=== PATIENT | male | born 1960 | race Hispanic/Latino ===

== ENCOUNTER 2021-12-05 21:59 | Inpatient (IN) | payer OTHER ==
[2021-12-06] MEDS: hydrALAZINE 20 MG/ML VIAL SLOW IVP PRN ×2 (01:09→17:43)
[2021-12-06 02:00] VITALS: BMI 26.4
[2021-12-06] MEDS: Cefepime 2 GM in Sodium Chloride 0.9% 100 ML IVPB SCH ×2 (06:22→17:45)
[2021-12-06] MEDS ORDERED: VANCOMYCIN 1.25 GM/250 ML BAG IVPB SCH (08:00)
[2021-12-06] MEDS: VANCOMYCIN 1.25 GM/250 ML BAG 1.25 GM in Premix Bag 1 BAG IVPB SCH ×2 (09:01→20:34)
[2021-12-06] MEDS ORDERED: Ondansetron PF 4 MG/2 ML Vial IVP PRN (09:46)
[2021-12-06] MEDS ORDERED: Ondansetron ODT 4 MG TAB PO PRN (09:46)
[2021-12-06] MEDS ORDERED: Dextrose 50% Abboject 50 ML SYRINGE SLOW IVP PRN (09:49)
[2021-12-06] MEDS ORDERED: Dextrose 5% in Water 1,000 ML IV PRN (09:49)
[2021-12-06] MEDS ORDERED: Electrolyte Replacement Protocol FS SCH (10:00)
[2021-12-06] MEDS: Sodium Chloride 0.9% 1,000 ML IV SCH (11:22)
[2021-12-06] MEDS: HumaLOG 300 UNITS/3 ML VIAL SC PRN (12:05)
[2021-12-06] MEDS: Gabapentin 300 MG CAP PO SCH ×2 (15:25→20:33)
[2021-12-06] MEDS ORDERED: hydrALAZINE 20 MG/ML VIAL SLOW IVP PRN (17:17)
[2021-12-06] MEDS: Morphine 2 MG/ML VIAL SLOW IVP PRN (17:40)
[2021-12-06] MEDS ORDERED: metFORMIN 500 MG TAB PO SCH (21:00)
[2021-12-07] MEDS: Sodium Chloride 0.9% 1,000 ML IV SCH ×2 (00:45→13:21)
[2021-12-07] MEDS: Cefepime 2 GM in Sodium Chloride 0.9% 100 ML IVPB SCH ×2 (05:42→17:18)
[2021-12-07 05:58] LABS: #Eosinphils 0.5 thou/uL (0.0-0.7); #Lymphocytes 1.3 thou/uL (1.20-3.40); #Monocytes 1.1 thou/uL (0.11-0.59); #Neutrophils 8.1 thou/uL (1.40-6.50); %Basophils 0.3 % (0.0-1.0); %Eosinophils 4.5 % (0.0-10.0); %Neutrophils 73.2 % (42.0-75.0); Hemoglobin 12.1 g/dL (14.0-18.0); Mean Corpuscular HGB CONC 33.6 g/dL (32.0-36.0); Mean Platelet Volume 7.8 fL (7.4-10.4); Platelet Count 237 thou/uL (130-400); RBC Distribution Width 12.2 % (11.5-14.5); Red Blood Cell (RBC) Count 3.77 mill/uL (4.70-6.10); White Blood Cell (WBC) Count 11.1 thou/uL (4.8-10.8)
[2021-12-07 06:29] LABS: Anion Gap 13 mmol/L (10-20); BUN (Urea Nitrogen) 16 mg/dL (8.4-25.7); Calc. Creatinine Clearance 97 mL/min (70-130); Calcium 8.8 mg/dL (7.8-10.44); Carbon Dioxide 22 mmol/L (23-31); Cardiac Risk 5.6 (Less than 4.5); Chloride 106 mmol/L (98-107); Cholesterol 179 mg/dl (< 200 Desired); Glucose 166 mg/dL (80-115); HDL Cholesterol 32 mg/dL (>60 Neg Risk); LDL Cholesterol, Calculated 117 mg/dL; Potassium 3.7 mmol/L (3.5-5.1); Sodium 137 mmol/L (136-145); Triglycerides 148 mg/dL (Less than 150)
[2021-12-07 06:33] LABS: Hemoglobin A1c 9.1 % (4.0-6.0)
[2021-12-07] MEDS: VANCOMYCIN 1.25 GM/250 ML BAG 1.25 GM in Premix Bag 1 BAG IVPB SCH ×2 (08:52→22:05)
[2021-12-07] MEDS: cloNIDine 0.1 MG TAB PO SCH ×2 (08:52→22:05)
[2021-12-07] MEDS: Gabapentin 300 MG CAP PO SCH ×3 (08:53→22:06)
[2021-12-07] MEDS: Losartan 25 MG TAB PO SCH (08:54)
[2021-12-07] MEDS ORDERED: Magnesium 2 GM/50 ML(in water) 2 GM in Premix Bag 1 BAG IVPB SCH ×2 (09:00→11:00)
[2021-12-07] MEDS: HYDROcodone/Acetaminophen 5/325 mg Tablet PO PRN (11:27)
[2021-12-07] MEDS: HumaLOG 300 UNITS/3 ML VIAL SC PRN ×2 (11:28→16:12)
[2021-12-08] MEDS: Sodium Chloride 0.9% 1,000 ML IV SCH (05:50)
[2021-12-08] MEDS: Cefepime 2 GM in Sodium Chloride 0.9% 100 ML IVPB SCH ×2 (05:50→17:20)
[2021-12-08 07:48] LABS: #Eosinphils 0.6 thou/uL (0.0-0.7); #Lymphocytes 1.3 thou/uL (1.20-3.40); #Neutrophils 6.7 thou/uL (1.40-6.50); %Basophils 0.3 % (0.0-1.0); %Eosinophils 5.8 % (0.0-10.0); %Lymphocytes 13.6 % (21.0-51.0); %Monocytes 10.6 % (0.0-10.0); %Neutrophils 69.7 % (42.0-75.0); Hemoglobin 10.7 g/dL (14.0-18.0); Mean Corpuscular HGB CONC 34.2 g/dL (32.0-36.0); Mean Corpuscular Hemoglobin 32.7 pg (27.0-31.0); Mean Corpuscular Volume 95.5 fL (78.0-98.0); Mean Platelet Volume 8.1 fL (7.4-10.4); Platelet Count 208 thou/uL (130-400); Red Blood Cell (RBC) Count 3.29 mill/uL (4.70-6.10); White Blood Cell (WBC) Count 9.6 thou/uL (4.8-10.8)
[2021-12-08 08:06] LABS: Vancomycin, Trough 20.2 ug/mL
[2021-12-08 08:07] LABS: Anion Gap 10 mmol/L (10-20); BUN (Urea Nitrogen) 16 mg/dL (8.4-25.7); Calc. Creatinine Clearance 81 mL/min (70-130); Calcium 7.9 mg/dL (7.8-10.44); Carbon Dioxide 23 mmol/L (23-31); Chloride 106 mmol/L (98-107); Glucose 189 mg/dL (80-115); Sodium 135 mmol/L (136-145)
[2021-12-08] MEDS: VANCOMYCIN 1.25 GM/250 ML BAG 1.25 GM in Premix Bag 1 BAG IVPB SCH ×2 (08:26→21:00)
[2021-12-08] MEDS: cloNIDine 0.1 MG TAB PO SCH ×2 (08:29→21:01)
[2021-12-08] MEDS: Gabapentin 300 MG CAP PO SCH ×3 (08:29→21:05)
[2021-12-08] MEDS: Losartan 25 MG TAB PO SCH (08:30)
[2021-12-08] MEDS: HYDROcodone/Acetaminophen 5/325 mg Tablet PO PRN ×3 (08:34→21:11)
[2021-12-08] MEDS: HumaLOG 300 UNITS/3 ML VIAL SC PRN ×2 (11:23→18:36)
[2021-12-08] MEDS: metFORMIN 500 MG TAB PO SCH (16:11)
[2021-12-08] MEDS: Metoprolol Tartrate 25 MG TAB PO SCH (21:05)
[2021-12-08] MEDS: hydrALAZINE 20 MG/ML VIAL SLOW IVP PRN (21:10)
[2021-12-09] MEDS: Cefepime 2 GM in Sodium Chloride 0.9% 100 ML IVPB SCH ×2 (05:00→17:32)
[2021-12-09] MEDS: HumaLOG 300 UNITS/3 ML VIAL SC PRN ×3 (06:34→21:45)
[2021-12-09 07:13] LABS: #Eosinphils 0.4 thou/uL (0.0-0.7); #Lymphocytes 1.3 thou/uL (1.20-3.40); #Monocytes 1.1 thou/uL (0.11-0.59); #Neutrophils 8.2 thou/uL (1.40-6.50); %Basophils 0.3 % (0.0-1.0); %Eosinophils 3.9 % (0.0-10.0); %Lymphocytes 11.3 % (21.0-51.0); %Neutrophils 74.5 % (42.0-75.0); Mean Corpuscular HGB CONC 33.4 g/dL (32.0-36.0); Mean Corpuscular Hemoglobin 31.8 pg (27.0-31.0); Mean Corpuscular Volume 95.4 fL (78.0-98.0); Mean Platelet Volume 7.8 fL (7.4-10.4); Platelet Count 215 thou/uL (130-400); RBC Distribution Width 12.1 % (11.5-14.5); Red Blood Cell (RBC) Count 3.14 mill/uL (4.70-6.10)
[2021-12-09 07:24] LABS: Anion Gap 11 mmol/L (10-20); BUN (Urea Nitrogen) 18 mg/dL (8.4-25.7); Calc. Creatinine Clearance 66 mL/min (70-130); Calcium 8.1 mg/dL (7.8-10.44); Carbon Dioxide 23 mmol/L (23-31); Chloride 106 mmol/L (98-107); Glucose 207 mg/dL (80-115); Potassium 3.9 mmol/L (3.5-5.1); Sodium 136 mmol/L (136-145); Vancomycin, Trough 22.4 ug/mL
[2021-12-09] MEDS ORDERED: Iopamidol 370 76% 100 ML VIAL ONE (08:34)
[2021-12-09] MEDS: Metoprolol Tartrate 25 MG TAB PO SCH ×2 (09:06→20:00)
[2021-12-09] MEDS: Vancomycin 1 GM in Premix Bag 1 BAG IVPB SCH ×2 (09:06→19:59)
[2021-12-09] MEDS: Aspirin 325 MG TAB PO SCH (09:06)
[2021-12-09] MEDS: cloNIDine 0.1 MG TAB PO SCH ×2 (09:06→20:00)
[2021-12-09] MEDS: Losartan 25 MG TAB PO SCH (09:06)
[2021-12-09] MEDS: Gabapentin 300 MG CAP PO SCH ×3 (09:07→20:01)
[2021-12-09] MEDS: Insulin Glargine 30 UNITS/0.3 ML VIAL SC SCH (09:07)
[2021-12-09] MEDS: Enoxaparin Sodium 40 MG/0.4 ML SYRINGE SC SCH (09:07)
[2021-12-09] MEDS ORDERED: Sodium Chloride 0.9% 1,000 ML IV SCH (09:15)
[2021-12-09] MEDS: metFORMIN 500 MG TAB PO SCH (09:50)
[2021-12-09] MEDS: Atorvastatin Calcium 40 MG TAB PO SCH (20:00)
[2021-12-09] MEDS: HYDROcodone/Acetaminophen 5/325 mg Tablet PO PRN (20:00)
[2021-12-10] MEDS: Sodium Chloride 0.9% 1,000 ML IV SCH ×3 (00:30→20:30)
[2021-12-10] MEDS: Cefepime 2 GM in Sodium Chloride 0.9% 100 ML IVPB SCH ×2 (05:07→18:01)
[2021-12-10 06:42] LABS: Anion Gap 13 mmol/L (10-20); BUN (Urea Nitrogen) 18 mg/dL (8.4-25.7); Calc. Creatinine Clearance 79 mL/min (70-130); Calcium 8.4 mg/dL (7.8-10.44); Carbon Dioxide 22 mmol/L (23-31); Chloride 104 mmol/L (98-107); Glucose 153 mg/dL (80-115); Potassium 3.6 mmol/L (3.5-5.1); Sodium 135 mmol/L (136-145)
[2021-12-10] MEDS ORDERED: Iopamidol 370 76% 50 ML VIAL FS ONE (08:30)
[2021-12-10] MEDS: Vancomycin 1 GM in Premix Bag 1 BAG IVPB SCH ×2 (08:55→20:10)
[2021-12-10] MEDS: cloNIDine 0.1 MG TAB PO SCH ×2 (08:56→20:10)
[2021-12-10] MEDS: Gabapentin 300 MG CAP PO SCH ×3 (08:56→20:11)
[2021-12-10] MEDS: Metoprolol Tartrate 25 MG TAB PO SCH ×2 (08:56→20:11)
[2021-12-10] MEDS: Losartan 25 MG TAB PO SCH (08:56)
[2021-12-10] MEDS: Enoxaparin Sodium 40 MG/0.4 ML SYRINGE SC SCH (08:57)
[2021-12-10] MEDS: Insulin Glargine 30 UNITS/0.3 ML VIAL SC SCH (08:57)
[2021-12-10] MEDS: Aspirin 325 MG TAB PO SCH (08:57)
[2021-12-10] MEDS ORDERED: Amlodipine 10 MG TAB PO SCH (14:30)
[2021-12-10] MEDS ORDERED: Lidocaine 1% (PF) 30 ML VIAL ONE ×2 (14:48→15:24)
[2021-12-10] MEDS ORDERED: Midazolam HCl 2 mg/2 ml Vial ONE (15:37)
[2021-12-10] MEDS ORDERED: hydrALAZINE 20 MG/ML VIAL ONE (15:37)
[2021-12-10] MEDS ORDERED: Fentanyl 100 MCG/2 ML VIAL ONE (15:37)
[2021-12-10 19:32] LABS: Vancomycin, Trough 19.1 ug/mL
[2021-12-10] MEDS: Atorvastatin Calcium 40 MG TAB PO SCH (20:11)
[2021-12-10] MEDS: HumaLOG 300 UNITS/3 ML VIAL SC PRN (21:30)
[2021-12-11] MEDS: HYDROcodone/Acetaminophen 5/325 mg Tablet PO PRN ×3 (00:58→18:30)
[2021-12-11] MEDS: HumaLOG 300 UNITS/3 ML VIAL SC PRN ×4 (06:00→21:45)
[2021-12-11] MEDS: Cefepime 2 GM in Sodium Chloride 0.9% 100 ML IVPB SCH ×2 (06:02→17:31)
[2021-12-11] MEDS: Sodium Chloride 0.9% 1,000 ML IV SCH ×2 (06:03→18:00)
[2021-12-11 06:12] LABS: #Basophils 0.1 thou/uL (0.0-0.2); #Eosinphils 0.3 thou/uL (0.0-0.7); #Lymphocytes 1.2 thou/uL (1.20-3.40); #Monocytes 1.1 thou/uL (0.11-0.59); #Neutrophils 7.8 thou/uL (1.40-6.50); %Basophils 0.6 % (0.0-1.0); %Eosinophils 2.6 % (0.0-10.0); %Lymphocytes 11.8 % (21.0-51.0); %Monocytes 10.8 % (0.0-10.0); %Neutrophils 74.2 % (42.0-75.0); Hemoglobin 9.5 g/dL (14.0-18.0); Mean Corpuscular HGB CONC 32.8 g/dL (32.0-36.0); Mean Corpuscular Hemoglobin 31.7 pg (27.0-31.0); Mean Corpuscular Volume 96.4 fL (78.0-98.0); Mean Platelet Volume 8.2 fL (7.4-10.4); Platelet Count 231 thou/uL (130-400); White Blood Cell (WBC) Count 10.5 thou/uL (4.8-10.8)
[2021-12-11 06:32] LABS: Anion Gap 11 mmol/L (10-20); BUN (Urea Nitrogen) 16 mg/dL (8.4-25.7); Calc. Creatinine Clearance 70 mL/min (70-130); Calcium 7.9 mg/dL (7.8-10.44); Carbon Dioxide 21 mmol/L (23-31); Chloride 107 mmol/L (98-107); Glucose 294 mg/dL (80-115); Potassium 3.8 mmol/L (3.5-5.1); Sodium 135 mmol/L (136-145)
[2021-12-11] MEDS: Gabapentin 300 MG CAP PO SCH ×3 (09:30→19:50)
[2021-12-11] MEDS: Vancomycin 1 GM in Premix Bag 1 BAG IVPB SCH ×2 (09:30→19:49)
[2021-12-11] MEDS: Enoxaparin Sodium 40 MG/0.4 ML SYRINGE SC SCH (09:30)
[2021-12-11] MEDS: Losartan 25 MG TAB PO SCH (09:30)
[2021-12-11] MEDS: Metoprolol Tartrate 25 MG TAB PO SCH ×2 (09:30→19:50)
[2021-12-11] MEDS: cloNIDine 0.1 MG TAB PO SCH ×2 (09:31→19:50)
[2021-12-11] MEDS: Amlodipine 10 MG TAB PO SCH (09:32)
[2021-12-11] MEDS: Insulin Glargine 30 UNITS/0.3 ML VIAL SC SCH (09:32)
[2021-12-11] MEDS: Aspirin 325 MG TAB PO SCH (09:32)
[2021-12-11] MEDS: Morphine 2 MG/ML VIAL SLOW IVP PRN (16:46)
[2021-12-11] MEDS: Atorvastatin Calcium 40 MG TAB PO SCH (19:51)
[2021-12-11] MEDS: Acetaminophen 325 MG TAB PO PRN (19:51)
[2021-12-12] MEDS: Acetaminophen 325 MG TAB PO PRN (00:20)
[2021-12-12] MEDS: Sodium Chloride 0.9% 1,000 ML IV SCH ×2 (04:17→12:10)
[2021-12-12] MEDS: Cefepime 2 GM in Sodium Chloride 0.9% 100 ML IVPB SCH (05:04)
[2021-12-12] MEDS: HYDROcodone/Acetaminophen 5/325 mg Tablet PO PRN (05:06)
[2021-12-12] MEDS: HumaLOG 300 UNITS/3 ML VIAL SC PRN (06:20)
[2021-12-12] MEDS: Vancomycin 1 GM in Premix Bag 1 BAG IVPB SCH (09:46)
[2021-12-12] MEDS: Insulin Glargine 30 UNITS/0.3 ML VIAL SC SCH (09:48)
[2021-12-12] MEDS: Amlodipine 10 MG TAB PO SCH (09:49)
[2021-12-12] MEDS: Aspirin 325 MG TAB PO SCH (09:49)
[2021-12-12] MEDS: cloNIDine 0.1 MG TAB PO SCH (09:49)
[2021-12-12] MEDS: Metoprolol Tartrate 25 MG TAB PO SCH (09:49)
[2021-12-12] MEDS: Gabapentin 300 MG CAP PO SCH (09:49)
[2021-12-12] MEDS: Losartan 25 MG TAB PO SCH (09:49)
[2021-12-12] MEDS: Enoxaparin Sodium 40 MG/0.4 ML SYRINGE SC SCH (09:50)
[2021-12-12 11:34] VITALS: BP 118/80; TEMP 99.2
== END 2021-12-12 14:35 | disposition home or self-care (01) | DRG 464 ==
LOC: SURG A 21:59
PROVIDERS: ADMIT Student in an Organized Health Care Education/Training Program; ATTEND Hospitalist
PROC: 0JBR0ZZ Excision of Left Foot Subcutaneous Tissue and Fascia, Open Approach (ICD-10-PCS; 2021-12-07)
PROC: B4101ZZ Fluoroscopy of Abdominal Aorta using Low Osmolar Contrast (ICD-10-PCS; principal; 2021-12-10)
PROC: B41G1ZZ Fluoroscopy of Left Lower Extremity Arteries using Low Osmolar Contrast (ICD-10-PCS; 2021-12-10)
DX: T87.44 Infection of amputation stump, left lower extremity (principal); M86.8X7 Other osteomyelitis, ankle and foot; I10 Essential (primary) hypertension; E78.5 Hyperlipidemia, unspecified; I25.10 Atherosclerotic heart disease of native coronary artery without angina pectoris; E11.40 Type 2 diabetes mellitus with diabetic neuropathy, unspecified; L03.032 Cellulitis of left toe; E11.51 Type 2 diabetes mellitus with diabetic peripheral angiopathy without gangrene; E11.621 Type 2 diabetes mellitus with foot ulcer; L97.529 Non-pressure chronic ulcer of other part of left foot with unspecified severity; Y83.8 Other surgical procedures as the cause of abnormal reaction of the patient, or of later complication, without mention of misadventure at the time of the procedure; I25.2 Old myocardial infarction; Z86.73 Personal history of transient ischemic attack (TIA), and cerebral infarction without residual deficits; Z79.899 Other long term (current) drug therapy; Z79.84 Long term (current) use of oral hypoglycemic drugs
CPT/HCPCS: 36247; 36415; 36416; 75635; 75710; 80048; 80061; 80202; 83036; 83735; 85025; 87040; 87070; 87077; 87186; 87205; 93923; C1760; J0360; J0692; J1650; J1815; J2001; J2250; J2270; J3010; J3370; J3475; J3490; J7050; Q9967